=== PATIENT | female | born 1990 | race Caucasian/White ===

== ENCOUNTER 2017-01-13 21:07 | Emergency (ER) | payer OTHER ==
[2017-01-13 22:11] VITALS: BP 132/82
== END 2017-01-13 22:11 | disposition home or self-care (01) ==
LOC: ED 21:07
DX: S93.402A Sprain of unspecified ligament of left ankle, initial encounter (principal); W01.0XXA Fall on same level from slipping, tripping and stumbling without subsequent striking against object, initial encounter; Y93.89 Activity, other specified; Y99.8 Other external cause status; Y92.89 Other specified places as the place of occurrence of the external cause

== ENCOUNTER 2020-04-28 11:41 | Emergency (ER) | payer SELFPAY ==
[~2020-04-28] VITALS: Ht 160 cm; Wt 79.4 kg
[2020-04-28 11:42] VITALS: Ht 160 cm; Wt 79.4 kg
[2020-04-28 11:52] VITALS: BP 145/98
== END 2020-04-28 11:52 | disposition left against medical advice (07) ==
LOC: ED 11:41
DX: Z53.21 Procedure and treatment not carried out due to patient leaving prior to being seen by health care provider (principal)